=== PATIENT | female | born 1960 ===

== ENCOUNTER 2022-08-21 14:19 | Emergency (ER) | payer MEDICARE ==
[~2022-08-21 14:19] MED LIST: Dexamethasone 4 MG/ML SDV PO ONE
== END 2022-08-21 14:40 | disposition home or self-care (01) ==
LOC: CC.ED 14:19 → EDBD 14:19 → CC.ED 14:40
DX: S40.861A Insect bite (nonvenomous) of right upper arm, initial encounter (principal); W57.XXXA Bitten or stung by nonvenomous insect and other nonvenomous arthropods, initial encounter
CPT/HCPCS: 99282; J8540